=== PATIENT | male | born 1995 | race Caucasian/White ===

== ENCOUNTER 2018-03-26 11:00 | Emergency (ER) | payer BC, OTHER ==
[2018-03-26 11:41] VITALS: BP 130/79
--- NOTE | 2018-03-26 11:53 | UC ---
Throat Pain/Nasal [place] HPI - HPI Summary HPI Summary: 22 y/o female with PMH + for anxiety, Meds- zoloft, c/o Sore throat since last night, + coughing, painful swallowing No known fever, + body aches, chills last night, improved this AM . no recent ABX, no illnesses. + eating drinking OK. - History of Current Complaint Chief Complaint: UCGeneralIllness Stated Complaint: SORE THROAT,CONGESTION,FATIGUE Time Seen by Provider: 03/26/18 11:52 Hx Obtained From: Patient Onset/Duration: Sudden Onset, Lasting Hours, Still Present Severity: Moderate Pain Intensity: 5 Pain Scale Used: 0-10 Numeric Cough: Nonproductive Associated Signs & Symptoms: Positive: Dysphagia, Sinus Discomfort - Allergies/Home Medications Allergies/Adverse Reactions: Allergies Allergy/AdvReac Type Severity Reaction Status Date / Time No Known Allergies Allergy Verified 03/26/18 11:38 Home Medications: Home Medications Sertraline* [Zoloft*] 100 mg PO DAILY 03/26/18 [History Confirmed 03/26/18] PMH/Surg Hx/FS Hx/Imm Hx Previously Healthy: Yes - anxiety - Surgical History Surgical History: None - Social History Alcohol Use: None Substance Use Type: None Smoking Status (MU): Never Smoked Tobacco - Immunization History Most Recent Tetanus Shot: 2009 Vaccination Up to Date: Yes Review of Systems All Other Systems Reviewed And Are Negative: Yes Constitutional: Positive: Chills, Fatigue ENT: Positive: Sore Throat, Ear Ache - ear itching b/l Respiratory: Positive: Cough Is Patient Immunocompromised?: No Physical Exam Triage Information Reviewed: Yes Appearance: No Pain Distress, Well-Nourished, Ill-Appearing - minimal Vital Signs: Initial Vital Signs Temp 98.5 F 03/26/18 11:37 Pulse 90 03/26/18 11:37 Resp 16 03/26/18 11:37 BP 130/79 03/26/18 11:37 Pulse Ox 98 03/26/18 11:37 Vital Signs Reviewed: Yes Eyes: Positive: Conjunctiva Clear ENT: Positive: Pharyngeal erythema - b/l, TMs normal, Tonsillar swelling, Tonsillar exudate - b/l white exudates, Uvula midline. Negative: Dental tenderness, Sinus tenderness Neck: Positive: Supple, Nontender Respiratory: Positive: Chest non-tender, Lungs clear, Normal breath sounds, No respiratory distress, No accessory muscle use. Negative: Crackles, Rhonchi, Stridor, Wheezing Cardiovascular: Positive: RRR, No Murmur Skin Exam: Normal Throat Pain/Nasal Course/Dx - Course Course Of Treatment: rapid strep +, abx given, rest, increased fluids - Differential Dx/Diagnosis Provider Diagnosis: Strep pharyngitis Discharge - Sign-Out/Discharge Documenting (check all that apply): Patient Departure All imaging exams completed and their final reports reviewed: No Studies - Discharge Plan Condition: Good Disposition: HOME Patient Education Materials: Strep Throat (ED) Referrals: Sarah Gann MD [Primary Care Provider] - Additional Instructions: - Increase fluid intake - Antibiotics as directed, take full course - Rest - REturn with rash, fever > 101, increased symptoms/ pain - Billing Disposition and Condition Condition: GOOD Disposition: Home
== END 2018-03-26 12:16 | disposition home or self-care (01) ==
LOC: UCCORT 11:00
DX: J02.0 Streptococcal pharyngitis (principal); B95.0 Streptococcus, group A, as the cause of diseases classified elsewhere; F41.9 Anxiety disorder, unspecified
CPT/HCPCS: 87651; 99212; G0463

== ENCOUNTER 2018-08-14 20:28 | Emergency (ER) | payer BC ==
[2018-08-14 20:51] VITALS: BP 124/71
--- NOTE | 2018-08-14 21:07 | UC ---
Lower Extremity/Ankle HPI - HPI Summary HPI Summary: running down concrete stairs, pt jumped and the foot rolled. Occurred this morning and foot became more sore and swollen as day went on. Pain is an 8 when he walks on it, no pain at rest. ROM is limited due to pain. - History of Current Complaint Chief Complaint: UCLowerExtremity Stated Complaint: RT ANKLE INJURY Time Seen by Provider: 08/14/18 20:58 Hx Obtained From: Patient Onset/Duration: Sudden Onset, Lasting Hours Severity Initially: Moderate Severity Currently: Moderate Pain Intensity: 0 Aggravating Factor(s): Standing, Ambulation Alleviating Factor(s): Rest Able to Bear Weight: Yes - Allergies/Home Medications Allergies/Adverse Reactions: Allergies Allergy/AdvReac Type Severity Reaction Status Date / Time No Known Allergies Allergy Verified 08/14/18 20:51 PMH/Surg Hx/FS Hx/Imm Hx Previously Healthy: Yes - Surgical History Surgical History: None - Family History Known Family History: Negative: Cardiac Disease, Hypertension - Social History Alcohol Use: Occasionally Substance Use Type: None Smoking Status (MU): Never Smoked Tobacco - Immunization History Most Recent Tetanus Shot: 2009 Vaccination Up to Date: Yes Review of Systems All Other Systems Reviewed And Are Negative: Yes Musculoskeletal: Positive: Arthralgia, Decreased ROM, Edema, Myalgia Physical Exam Triage Information Reviewed: Yes Appearance: Well-Appearing, Well-Nourished, Pain Distress Vital Signs: Initial Vital Signs Temp 98.5 F 08/14/18 20:45 Pulse 84 08/14/18 20:45 Resp 16 08/14/18 20:45 BP 124/71 08/14/18 20:45 Pulse Ox 98 08/14/18 20:45 Vital Signs Reviewed: Yes Eye Exam: Normal ENT Exam: Normal Dental Exam: Normal Neck exam: Normal Respiratory Exam: Normal Respiratory: Positive: Chest non-tender, Lungs clear, Normal breath sounds Cardiovascular Exam: Normal Cardiovascular: Positive: RRR, No Murmur, Pulses Normal Abdominal Exam: Normal Bowel Sounds: Positive: Present Musculoskeletal Exam: Normal Neurological Exam: Normal Psychological Exam: Normal Skin Exam: Normal Lower Extremity Course/Dx - Course Course Of Treatment: hx obtained, exam performed ,meds reviewed, xray obtained - Differential Dx/Diagnosis Differential Diagnosis/HQI/PQRI: Fracture (Closed), Sprain, Strain Provider Diagnosis: Sprain of right ankle Discharge - Sign-Out/Discharge Documenting (check all that apply): Patient Departure All imaging exams completed and their final reports reviewed: No - Discharge Plan Condition: Stable Disposition: HOME Patient Education Materials: Ankle Sprain (ED) Referrals: No Primary Care Phys,NOPCP [Primary Care Provider] - Additional Instructions: 1. Ice the ankle 20 min at a time 2. Elevate and compress the ankle to decrease the swelling 3. use the gel splint for support and crutches to rest the ankle 4. The official read of the xray will be available tomorrow, I do not see any obvious fracture, I will call if the radiologist finds anything different. 5. work back into full weight bearing. 6. Continue with Ibuprofen for pain and swelling, 400 - 600 mg every 4-6 hours - Billing Disposition and Condition Condition: STABLE Disposition: Home - Attestation Statements Provider Attestation: I was available for consult. This patient was seen by the MELONIE. The patient was not presented to, seen by, or examined by me. -Angelique
--- NOTE | 2018-08-15 11:56 | UC ---
- Progress Note Progress Note: #. Consider lateral supporting ligament injury given magnitude of soft tissue swelling and presence of talocrural joint effusion in absence of fracture. #. Nonspecific finding at the distal metaphysis of the tibia. Given absence of prior exams to document stability consider follow-up radiograph of this low suspicion finding in approximate 6 months. Mid level who cared for him will discuss XR results Course/Dx - Diagnoses Provider Diagnoses: Sprain of right ankle Discharge - Sign-Out/Discharge Documenting (check all that apply): Post-Discharge Follow Up All imaging exams completed and their final reports reviewed: Yes - Discharge Plan Condition: Stable Disposition: HOME Patient Education Materials: Ankle Sprain (ED) Referrals: No Primary Care Phys,NOPCP [Primary Care Provider] - Additional Instructions: 1. Ice the ankle 20 min at a time 2. Elevate and compress the ankle to decrease the swelling 3. use the gel splint for support and crutches to rest the ankle 4. The official read of the xray will be available tomorrow, I do not see any obvious fracture, I will call if the radiologist finds anything different. 5. work back into full weight bearing. 6. Continue with Ibuprofen for pain and swelling, 400 - 600 mg every 4-6 hours - Billing Disposition and Condition Condition: STABLE Disposition: Home
--- NOTE | 2018-08-15 12:05 | UC ---
- Progress Note Progress Note: spoke with patient about results of xray and gave him [facility] orthopedics for follow up Course/Dx - Diagnoses Provider Diagnoses: Sprain of right ankle Discharge - Sign-Out/Discharge Documenting (check all that apply): Post-Discharge Follow Up All imaging exams completed and their final reports reviewed: Yes - Discharge Plan Condition: Stable Disposition: HOME Patient Education Materials: Ankle Sprain (ED) Referrals: No Primary Care Phys,NOPCP [Primary Care Provider] - Additional Instructions: 1. Ice the ankle 20 min at a time 2. Elevate and compress the ankle to decrease the swelling 3. use the gel splint for support and crutches to rest the ankle 4. The official read of the xray will be available tomorrow, I do not see any obvious fracture, I will call if the radiologist finds anything different. 5. work back into full weight bearing. 6. Continue with Ibuprofen for pain and swelling, 400 - 600 mg every 4-6 hours - Billing Disposition and Condition Condition: STABLE Disposition: Home - Attestation Statements Provider Attestation: I was available for consult. This patient was seen by the MELONIE. The patient was not presented to, seen by, or examined by me. -Angelique
== END 2018-08-14 21:37 | disposition home or self-care (01) ==
LOC: UCCORT 20:28
DX: S93.401A Sprain of unspecified ligament of right ankle, initial encounter (principal); X58.XXXA Exposure to other specified factors, initial encounter; Y92.9 Unspecified place or not applicable
CPT/HCPCS: 99212; G0463